=== PATIENT | female | born 1975 ===

== ENCOUNTER 2016-10-04 15:30 | Emergency (ER) | payer SELFPAY ==
[~2016-10-04] VITALS: Ht 165.1 cm; Wt 97.0 kg
[2016-10-04 15:31] VITALS: BP 141/79; PULSE 130; RESP 20; TEMP 98.5; O2SAT 98
--- NOTE | 2016-10-04 15:37 | PD ---
Physical Exam Time Seen by Provider: 15:34 Narrative 41yo F c/o sudden onset of welts all over [place] on [place] the [place]. Reports burning and hot sensation to her skin. Denies airway edema, tongue edema, facial or lip edema, SOB, difficulty breathing. Denies new exposures. Patient seen in triage. VS reviewed. Awaiting bed placement. Data Data Last Documented VS Vital Signs Date Time Temp Pulse Resp B/P Pulse Ox O2 Delivery O2 Flow Rate FiO2 10/04/16 15:31 98.5 130 20 141/79 98 Room Air MDM Supervised Visit with RENETTA: Mer Hair Oct 04, 2016 15:37
[2016-10-04] MEDS ORDERED: SODIUM CHLOR 0.9% 1000 ML INJ 1,000 ML IV SCH (16:06)
[2016-10-04] MEDS ORDERED: methylPREDNISolone SOD SUCC 125 MG/2 ML VIAL IVP ONE (16:15)
[2016-10-04] MEDS ORDERED: FAMOTIDINE 20 MG/2 ML VIAL IV PUSH ONE (16:15)
[2016-10-04] MEDS ORDERED: diphenhydrAMINE HCL 50 MG/ML VIAL IVP ONE (16:15)
[2016-10-04] MEDS ORDERED: SODIUM CHLORIDE 0.9% FLUSH 10 ML FLUSH IV FLUSH PRN (16:15)
[2016-10-04 16:37] VITALS: O2SAT 100
--- NOTE | 2016-10-04 16:37 | PD ---
HPI Chief Complaint: Allergic/Adverse Reaction Time Seen by Provider: 16:35 Travel History International Travel<30 days: No Contact w/Intl Traveler<30days: No Traveled to known affect area: No History of Present Illness HPI 41-year-old female with PMH of latex allergy presents to the ED for evaluation of sudden onset hives "all over the body." Patient endorses pruritus, burning and stinging sensation. She denies shortness of breath, scratchy throat, closed throat sensation, wheezing, shortness of breath, palpitations. She is unsure of any new environmental contacts. She endorses similar episode when she discovered that she is allergic to latex. She is visiting from [place]. PFSH Past Medical History ?: Unknown Social History Alcohol Use: Yes Tobacco Use: Yes Substance Use: No Allergies-Medications (Allergen,Severity, Reaction): Coded Allergies: Latex (Verified Allergy, Unknown, 10/04/16) Penicillin (Verified Allergy, Unknown, 10/04/16) Reported Meds & Prescriptions Reported Meds & Active Scripts Active Prednisone 20 Mg Tab 40 Mg PO DAILY 5 Days Take 40 mg (2 tablets) daily for 5 days Review of Systems Except as stated in HPI: all other systems reviewed are Neg Physical Exam Narrative GENERAL: Well-nourished, well-developed obese female in no acute distress. SKIN: Warm and dry. Scattered, blanching, erythematous, urticarial wheals over the chest, back and extremities. HEAD: Normocephalic. Atraumatic. EYES: No scleral icterus. No injection or drainage. PERRLA. EOMI. ENT: Pearly duarte tympanic membranes bilaterally. Nasal mucosa is moist. Oropharynx without erythema, edema or exudate. Uvula midline. Airway patent. Floor the mouth is soft. NECK: Supple, trachea midline. No JVD or lymphadenopathy. CARDIOVASCULAR: Regular rate and rhythm without murmurs, gallops, or rubs. 2+ DP and radial pulses bilaterally. RESPIRATORY: Breath sounds clear and equal bilaterally. No accessory muscle use. GASTROINTESTINAL: Abdomen soft, non-tender, nondistended. + Bowel sounds MUSCULOSKELETAL: No cyanosis, or edema. BACK: Nontender without obvious deformity. No CVA tenderness. Data Data Last Documented VS Vital Signs Date Time Temp Pulse Resp B/P Pulse Ox O2 Delivery O2 Flow Rate FiO2 10/04/16 17:26 64 16 115/70 98 Room Air 10/04/16 15:31 98.5 Orders Basic Metabolic Panel (Bmp) (10/04/16 16:06) Complete Blood Count With Diff (10/04/16 16:06) Ecg Monitoring (10/04/16 16:06) Iv Access Insert/Monitor (10/04/16 16:06) Oximetry (10/04/16 16:06) Diphenhydramine Inj (Benadryl Inj) (10/04/16 16:15) Methylprednisolone So Succ Inj (Solumedr (10/04/16 16:15) Famotidine Inj (Pepcid Inj) (10/04/16 16:15) Sodium Chlor 0.9% 1000 Ml Inj (Ns 1000 M (10/04/16 16:06) Sodium Chloride 0.9% Flush (Ns Flush) (10/04/16 16:15) Labs Laboratory Tests Test 10/04/16 16:20 White Blood Count 7.1 TH/MM3 Red Blood Count 5.04 MIL/MM3 Hemoglobin 15.2 GM/DL Hematocrit 44.9 % Mean Corpuscular Volume 89.1 FL Mean Corpuscular Hemoglobin 30.3 PG Mean Corpuscular Hemoglobin 34.0 % Concent Red Cell Distribution Width 13.3 % Platelet Count 402 TH/MM3 Mean Platelet Volume 10.0 FL Neutrophils (%) (Auto) 60.0 % Lymphocytes (%) (Auto) 33.2 % Monocytes (%) (Auto) 4.8 % Eosinophils (%) (Auto) 1.7 % Basophils (%) (Auto) 0.3 % Neutrophils # (Auto) 4.3 TH/MM3 Lymphocytes # (Auto) 2.4 TH/MM3 Monocytes # (Auto) 0.3 TH/MM3 Eosinophils # (Auto) 0.1 TH/MM3 Basophils # (Auto) 0.0 TH/MM3 CBC Comment DIFF FINAL Differential Comment Sodium Level 140 MEQ/L Potassium Level 4.1 MEQ/L Chloride Level 108 MEQ/L Carbon Dioxide Level 24.1 MEQ/L Anion Gap 8 MEQ/L Blood Urea Nitrogen 12 MG/DL Creatinine 0.79 MG/DL Estimat Glomerular Filtration 81 ML/MIN Rate Random Glucose 122 MG/DL Calcium Level 9.0 MG/DL MDM Medical Decision Making Medical Screen Exam Complete: Yes Emergency Medical Condition: Yes Differential Diagnosis Contact dermatitis versus allergic dermatitis versus urticarial wheals versus Lactose versus other Narrative Course 41-year-old female with PMH of latex allergy presents to the ED for evaluation of sudden onset hives "all over the body." Patient endorses pruritus, burning and stinging sensation. She denies shortness of breath, scratchy throat, closed throat sensation, wheezing, shortness of breath, palpitations. She is unsure of any new environmental contacts. She endorses similar episode when she discovered that she is allergic to latex. She is visiting from [place]. Vitals reviewed. The patient is tachycardic in triage but this resolved in the treatment room. Physical exam reveals blanching erythematous pruritic wheals distributed on the trunk and extremities. ENT exam is unremarkable. Breath sounds clear bilaterally. IV was established. The patient was administered 1 L normal saline, IV Benadryl, IV famotidine, IV methylprednisolone. Basic lab work is unremarkable. On recheck the rash has resolved and the patient states that she is feeling "much better." She is prescribed 5 day course of prednisone, instructed to follow up with her primary care or a fingerprint classifier when she returns home tomorrow. She indicated understanding of the instructions and is agreeable to the care plan. She is stable and discharged home. Diagnosis Primary Impression: Allergic urticaria Referrals: [facility] Primary Care Physician Patient Instructions: General Allergic Reaction (ED), General Instructions Additional Instructions: Rest, hydrate. Or exposure to known allergens. Take steroids as prescribed. Follow-up with your primary care provider. Return to the ED for worsening symptoms or any urgent or emergent medical condition. Med/Other Pt SpecificInfo: Prescription(s) given Scripts Prednisone 20 Mg Tab40 Mg PO DAILY 5 Days Ref 0 Take 40 mg (2 tablets) daily for 5 days Prov:James Escobar MD 10/04/16 Disposition: 01 DISCHARGE HOME Condition: Stable Ana Cote Oct 04, 2016 16:37
[2016-10-04 17:06] LABS: AUTOMATED NEUTROPHIL # 4.3 TH/MM3 (1.8-7.7); BASOPHIL % 0.3 % (0.0-2.0); EOSINOPHIL # 0.1 TH/MM3 (0-0.4); EOSINOPHIL % 1.7 % (0.0-4.0); HEMATOCRIT 44.9 % (35.0-46.0); HEMO FLAGS DIFF FINAL; LYMPH % 33.2 % (9.0-44.0); LYMPHOCYTE # 2.4 TH/MM3 (1.0-4.8); MEAN CELL VOLUME 89.1 FL (80.0-100.0); MEAN CORPUSCULAR HEMOGLOBIN 30.3 PG (27.0-34.0); MONO % 4.8 % (0.0-8.0); PLATELET COUNT 402 TH/MM3 (150-450); RED BLOOD COUNT 5.04 MIL/MM3 (4.00-5.30); RED CELL DISTRIBUTION WIDTH 13.3 % (11.6-17.2); WHITE BLOOD COUNT 7.1 TH/MM3 (4.0-11.0)
[2016-10-04 17:18] LABS: BICARBONATE 24.1 MEQ/L (21.0-32.0)
[2016-10-04 17:26] VITALS: BP 115/70; PULSE 64; RESP 16; O2SAT 98
[2016-10-04 17:26] LABS: POTASSIUM 4.1 MEQ/L (3.5-5.1)
[2016-10-04] MEDS ORDERED: PRED20 PO (17:34)
== END 2016-10-04 18:08 | disposition home or self-care (01) ==
LOC: NEPC 15:30
DX: L50.0 Allergic urticaria (principal); Z72.0 Tobacco use
CPT/HCPCS: 80048; 85025; 96374; 96375; 99284; J1200; J2930; J7030